=== PATIENT | female | born 1945 | race Caucasian/White ===

== ENCOUNTER 2023-07-04 06:08 | Day surgery (SDC) | payer MEDICARE, BC ==
[2023-07-02 12:34] VITALS: BMI 30.2
[2023-07-04] MEDS ORDERED: Thrombin 5000 UNITS/5 ML VIAL ONE (06:47)
[2023-07-04] MEDS ORDERED: Bupivacaine PF 0.5% 30 ML VIAL ONE (06:47)
[2023-07-04] MEDS ORDERED: EPINEPHrine 1 MG/ML AMP ONE (06:47)
[2023-07-04 07:47] LABS: Anion Gap 14 mmol/L (10-20); BUN (Urea Nitrogen) 13 mg/dL (9.8-20.1); Calc. Creatinine Clearance 78 mL/min (70-130); Calcium 9.6 mg/dL (7.8-10.44); Carbon Dioxide 26 mmol/L (23-31); Chloride 102 mmol/L (98-107); Estimated GFR 74; Glucose 113 mg/dL (83-110); Potassium 3.5 mmol/L (3.5-5.1); Sodium 138 mmol/L (136-145)
[2023-07-04] MEDS ORDERED: Fentanyl 250 MCG/5 ML VIAL ONE (08:15)
[2023-07-04] MEDS ORDERED: KETAMINE 100 MG/ML (5ML VIAL) ONE (08:15)
[2023-07-04] MEDS ORDERED: SUGAMMADEX SODIUM 200 MG/2 ML VIAL ONE (08:16)
[2023-07-04] MEDS ORDERED: CEFAZOLIN 2 GM VIAL ONE ×2 (08:51→13:02)
[2023-07-04] MEDS ORDERED: Sodium Chloride 0.9% 100 ML ONE ×2 (08:51→13:02)
[2023-07-04] MEDS ORDERED: Lidocaine 1% PF 5 ML VIAL ONE (09:20)
[2023-07-04] MEDS ORDERED: Metoprolol Tartrate 5 MG/5 ML VIAL ONE (09:20)
[2023-07-04] MEDS ORDERED: Rocuronium Bromide 10 MG/ML (10ML VIAL) ONE (09:20)
[2023-07-04] MEDS ORDERED: PROPOFOL 200 MG/20 ML VIAL ONE (09:20)
[2023-07-04] MEDS ORDERED: Dexamethasone 20 MG/5 ML VIAL ONE (09:20)
[2023-07-04] MEDS ORDERED: Ondansetron PF 4 MG/2 ML Vial ONE ×2 (09:20→13:11)
[2023-07-04] MEDS ORDERED: PHENYLEPHRINE-NS 100 MCG/ML 10 ML SYRINGE ONE (09:20)
[2023-07-04] MEDS ORDERED: NEOSTIGMINE 3 MG/3 ML SYR 3 MG/3 ML SYRINGE ONE (09:20)
[2023-07-04] MEDS ORDERED: Glycopyrrolate 0.2 MG/ML 5 ML SYRINGE ONE (09:20)
[2023-07-04] MEDS ORDERED: fentaNYL 50 mcg/mL 1 mL Vial ONE ×2 (10:50→11:00)
[2023-07-04] MEDS ORDERED: Morphine 4 MG/ML VIAL ONE (11:27)
[2023-07-04] MEDS ORDERED: HYDROmorphone 0.5 MG/0.5 ML SYRINGE ONE (11:51)
[2023-07-04] MEDS ORDERED: HYDROcodone/Acetaminophen 5/325 mg Tablet ONE (14:08)
[2023-07-04] MEDS ORDERED: Promethazine HCl 12.5 MG SUPP PR SCH (14:15)
== END 2023-07-04 15:13 | disposition home or self-care (01) ==
LOC: SDC 06:08
PROVIDERS: ATTEND Neurological Surgery
DX: M48.062 Spinal stenosis, lumbar region with neurogenic claudication (principal)
CPT/HCPCS: 80048; 93005; J3010; 36415; 93010; J0171; J1100; J1170; J2270; J2405; J2704; J3490; S0020